=== PATIENT | male | born 1960 | race Caucasian/White ===

== ENCOUNTER 2023-12-15 21:21 | Emergency (ER) | payer OTHER, SELFPAY ==
[2023-12-15 21:39] VITALS: BP 144/79; RESP 18; TEMP 36.7; O2SAT 91; BMI 41.8
--- NOTE | 2023-12-15 21:47 | ED.GENADULT ---
HPI - General Adult General Chief complaint: Cough Stated complaint: shortness of breath, cough Time Seen by Provider: 12/15/23 21:47 History of Present Illness HPI narrative: CC: Cough, Shortness of Breath pt. with sympotoms for last month. saw clinic md on new years. put on abx. finished that, but still feels short of breath. denies fevers, n/v, diarrhea. 63-year-old man presenting to the emergency department concern of cough. These symptoms have been present for about a month. Early on this course sounds as though received a course of antibiotics probably azithromycin. Symptoms have not changed a whole lot. Denies heart failure. Does have a history of some degree of reactive airway. Partly what brought him in was intense jags of coughing. Cough, desire to cough is definitely worse when he is lying down. Has not had any fever. He has not been vomiting. No diarrhea. No chest pain. Has been congested in the face as well. Apparently prednisone was discussed with healthcare provider but there was concern of potential effect on blood pressure. Is a little sore from coughing. Related Data Home Medications Medication Instructions Recorded Confirmed lisinopril 10 mg tablet 10 mg PO DAILY 12/15/23 12/15/23 Allergies Allergy/AdvReac Type Severity Reaction Status Date / Time No Known Drug Allergies Allergy Verified 12/15/23 21:41 Review of Systems Status of ROS: Reports: 6 or more systems reviewed and unremarkable except as noted in History and below [facility] Social History Smoking Status: Never smoker How often do you have a drink containing alcohol: monthly or less How often do you have six or more drinks on one occasion: Never AUDIT-C Alcohol total score: 1 Non-prescribed substance use: denies use Exam Narrative: Exam Narrative: Pleasant. Does appear tired. Sounds laryngitic. Oropharynx is moist. Mildly erythematous far posteriorly but not with much cobblestoning. Face is without swelling or erythema though a little tenderness in the maxillary sinuses. Neck is supple without lymphadenopathy. Lungs sound a little coarse on exhalation bordering on wheeze. He does cough a little with exhalation. Heart in regular rate and rhythm. Hands are thick, working hands and heavily callused. Switching oximetry to finger on right hand does improve oximetry reading to 93 - 94%. lower extremities are without edema Const: Vital Signs, click to edit/add: Vital Signs - 24 hr 12/15/23 21:39 Temperature 98.0 F Respiratory Rate 18 Blood Pressure [Ri ght Upper Arm] 144/79 H Pulse Oximetry 91 Oxygen Delivery Me thod Room Air Documenting provider has reviewed patient's vital signs: yes Course Vital Signs Vital signs: Initial Vital Signs Temperature 98.0 F 12/15/23 21:39 Temperature Source Temporal Artery Scan 12/15/23 21:39 Respiratory Rate 18 12/15/23 21:39 Blood Pressure 144/79 H 12/15/23 21:39 Blood Pressure Mean 100 12/15/23 21:39 Blood Pressure Position Sitting 12/15/23 21:39 Pulse Oximetry 91 12/15/23 21:39 Oxygen Delivery Method Room Air 12/15/23 21:39 Vital Signs Temperature 98.0 F 12/15/23 21:39 Respiratory Rate 18 12/15/23 21:39 Blood Pressure 144/79 H 12/15/23 21:39 Pulse Oximetry 91 12/15/23 21:39 Oxygen Delivery Method Room Air 12/15/23 21:39 Temperature 98.0 F 12/16/23 00:08 Pulse Rate 84 12/16/23 00:08 Respiratory Rate 18 12/16/23 00:08 Blood Pressure 144/79 H 12/16/23 00:08 Pulse Oximetry 93 12/15/23 22:56 Oxygen Delivery Method Room Air 12/15/23 22:56 Medications Administered Medications: Discontinued Medications Generic Name Dose Route Start Last Admin Trade Name Freq PRN Reason Stop Dose Admin Albuterol/Ipratropium 1 neb 12/15/23 22:08 12/15/23 22:13 Iprat-Albut 0.5-2.5 Mg/3 Ml Neb IH 12/15/23 22:09 1 neb ONCE ONE Administration Medical Decision Making MDM Narrative Medical decision making narrative: Probably due to duration I think it is reasonable to do a chest x-ray here now. Possible pneumonia but seems more of a bronchitis/residual inflammatory changes though for lack of better terminology. Would also triple swab considering community prevalence. There is this component of cough though that I think is triggered by some postnasal drip. May even be some laryngeal spasm. Discussed options for treatment and he would like a nebulization treatment. Was ordered for DuoNeb This was given and on reassessment reported feeling better. Chest x-ray reviewed by me is without infiltrate pneumothorax. Normal cardiovascular silhouette. Radiology over-read as below INDICATION: Cough. TECHNIQUE: Chest 2 views. COMPARISON: None. FINDINGS: Cardiovascular and mediastinum: Heart size and vasculature are normal in caliber and appearance. Lungs and pleural spaces: Lungs are clear. No sign of infiltrate or mass. No sign of pleural effusion. No pneumothorax. Bones and soft tissues: No significant findings. IMPRESSION: No consolidation. Stable here in the ER. See patient discharge plan Lab Data Lab results reviewed: Yes I reviewed the patient's lab results Labs: Lab Results 12/15/23 Range/Units 21:40 SARS-CoV-2 (PCR) Negative SARS-CoV-2 (Negative) Influenza Type A (PCR) Negative PCR FLU A (Negative) Influenza Type B (PCR) Negative PCR FLU B (Negative) RSV (PCR) Negative PCR RSV (Negative) Discharge Plan Discharge Clinical Impression: Cough, Sinus congestion, Laryngitis, Bronchitis Patient Disposition: Home, Self-Care Condition: Improved Additional Instructions: Stay well-hydrated. For your sinuses you might consider pseudoephedrine for drying and decongestion. I like the 12 hour formulation. You might also try Neti pot and nasal saline rinses or other lavage system. Sleep with head of bed elevated. Sucking on ice chips can be helpful for the cough emanating from the throat. You might try anesthetic throat lozenges or sprays like Sucrets or Chloraseptic. Sleeping under the mist of a cool mist humidifier might help as well as menthol vapors. Cough syrup, prednisone, albuterol from [facility] As discussed, I would follow up for repeat pulmonary function testing to optimize care. I will call you if Radiology has anything more to say about your chest x-ray Prescriptions: No Action lisinopril 10 mg tablet 10 mg PO DAILY Follow Up/Referrals: Provider,Not a Local [Primary Care Provider] - Stand Alone Forms: [employer] Info Instructions
[2023-12-15 22:08] VITALS: O2SAT 92
--- NOTE | 2023-12-15 22:08 | CRLHL7_ITS ---
For Patients: As a result of the Century Cures Act, medical imaging exams and procedure reports are released immediately into your electronic medical record. You may view this report before your referring provider. If you have questions, please contact your health care provider. INDICATION: Cough. TECHNIQUE: Chest 2 views. COMPARISON: None. FINDINGS: Cardiovascular and mediastinum: Heart size and vasculature are normal in caliber and appearance. Lungs and pleural spaces: Lungs are clear. No sign of infiltrate or mass. No sign of pleural effusion. No pneumothorax. Bones and soft tissues: No significant findings. IMPRESSION: No consolidation. Dictated by Nigel El MD @ 12/16/2023 12:08:41 AM (Electronically Signed)
[2023-12-15] MEDS: IPRAT-ALBUT 0.5-2.5 MG/3 ML NEB 1 NEB IH (22:13)
[2023-12-15 22:23] LABS: PCR FLU A Negative PCR FLU A (Negative); PCR FLU B Negative PCR FLU B (Negative); PCR RSV Negative PCR RSV (Negative); SARS PCR* Negative SARS-CoV-2 (Negative)
[2023-12-15 22:56] VITALS: O2SAT 93
[2023-12-15 22:59] VITALS: PULSE 84
[2023-12-16 00:08] VITALS: BP 144/79; PULSE 84; RESP 18; TEMP 36.7
== END 2023-12-16 00:15 | disposition home or self-care (01) ==
PROVIDERS: Emergency Provider Family Medicine
DX: J40 Bronchitis, not specified as acute or chronic (principal)
CPT/HCPCS: 71046; 87631; 94640; 94761; 99283; 99284